=== PATIENT | female | born 1965 | race Caucasian/White ===

== ENCOUNTER → 2017-01-01 | Outpatient (CLI) | payer BC ==
[~2017-01-01] MED LIST: BCP PO; BIOT50004 PO; CALCCHW8 PO; CELE-19 PO; FOLI800T PO; MULT1TAB10 PO; NEUR300C PO; OXYC15TA76 PO; OXYC1SOL PO
--- NOTE | 2017-01-01 14:49 | REPMRS ---
Patient History The patient states she had a clinical breast exam in 01/04 No known family history of cancer. Taking hormonal contraceptives for 3 years 6 months. Digital Woman Screen Mammo: January 01, 2017 - Exam #: [id number] Bilateral CC and MLO view(s) were taken. Technologist: Steffanie Allen, Technologist Prior study comparison: October 17, 2015, digital woman screen mammo performed at [facility]. August 17, 2014, digital woman screen mammo performed at [facility]. August 11, 2013, digital woman screen mammo performed at [facility]. FINDINGS: There are scattered fibroglandular densities. There has been no change in the appearance of the mammogram from the prior studies. There is a mild amount of scattered fibroglandular density which is fairly symmetric. There is no interval development of dominant mass, architectural distortion, or clustered microcalcification suggestive of malignancy. ASSESSMENT: BI-RADS/ACR category 1 mammogram. Negative. Recommendation Routine screening mammogram in 1 year (for women over age 40). This mammogram was interpreted with the aid of an FDA-approved computer-aided dectection system. Electronically Signed By: Tim Jacobo MD 01/01/17 1057
== END ==
LOC: M WHC 14:09
PROVIDERS: ATTEND Nurse Practitioner Family
DX: Z12.31 Encounter for screening mammogram for malignant neoplasm of breast (principal); Z92.0 Personal history of contraception

== ENCOUNTER → 2017-06-05 | Outpatient (REF) | payer BC ==
[~2017-06-05] MED LIST changes: -CELE-19 PO; +CELE1CAP4 PO; -OXYC1SOL PO; +OXYC1SOL3 PO
[2017-06-05 22:07] LABS: CALCIUM OXALATE CRYSTALS SMALL
== END ==
LOC: M LAB REF 18:00
PROVIDERS: ATTEND Physician Assistant Medical
DX: N39.0 Urinary tract infection, site not specified (principal)

== ENCOUNTER → 2018-03-18 | Outpatient (CLI) | payer BC | LOC: M WHC 08:29 | DX: Z12.31 Encounter for screening mammogram for malignant neoplasm of breast (principal); Z78.0 Asymptomatic menopausal state; Z92.0 Personal history of contraception ==

== ENCOUNTER → 2018-03-18 | Outpatient (REF) | payer BC ==
[2018-03-20 14:16] LABS: HPV HYBRID CAPTURE II Positive (Negative)
== END ==
LOC: M SFHCWAGY 09:06
DX: Z12.4 Encounter for screening for malignant neoplasm of cervix (principal)
CPT/HCPCS: G0123

== ENCOUNTER → 2019-03-19 | Outpatient (REF) | payer BC ==
[2019-03-23 00:06] LABS: HPV HYBRID CAPTURE II Positive (Negative)
== END ==
LOC: M SFHCWAGY 08:37
PROVIDERS: ATTEND Nurse Practitioner Family
DX: Z12.4 Encounter for screening for malignant neoplasm of cervix (principal)
CPT/HCPCS: 87624; G0123

== ENCOUNTER → 2019-03-19 | Outpatient (CLI) | payer BC ==
--- NOTE | 2019-03-19 09:59 | REPMRS ---
Patient History The patient states she had a clinical breast exam in 02/2019. Patient is postmenopausal. No known family history of cancer. Took hormonal contraceptives for 4 years 7 months. Taking unspecified hormones for 11 months beginning at age 52. 3D TOMOSYNTHESIS WAS PERFORMED. Digital Woman Screen Mammo: March 19, 2019 - Exam #: [id number] Bilateral CC and MLO view(s) were taken. Technologist: Phuong Bedoya, Technologist Prior study comparison: March 18, 2018, digital woman screen mammo performed at [facility]. January 01, 2017, digital woman screen mammo performed at [email or web address]. FINDINGS: The breast tissue is heterogeneously dense. This may lower the sensitivity of mammography. There has been no change in the appearance of the mammogram from the prior studies. There is a moderate amount of residual fibroglandular tissue which is fairly symmetric. There is no interval development of dominant mass, areas of architectural distortion, or clustered microcalcification typical of malignancy. Assessment: BI-RADS/ACR category 1 mammogram. Negative Mammogram. Recommendation Routine screening mammogram in 1 year (for women over age 40). This mammogram was interpreted with the aid of an FDA-approved computer-aided dectection system. Electronically Signed By: Mauro Joseph MD 03/19/19 0958
== END ==
LOC: M WHC 08:07
PROVIDERS: ATTEND Nurse Practitioner Family
DX: Z12.31 Encounter for screening mammogram for malignant neoplasm of breast (principal)

== ENCOUNTER → 2020-05-11 | Outpatient (CLI) | payer BC ==
[~2020-05-11] MED LIST changes: +OXYC-1 PO; -OXYC15TA76 PO
--- NOTE | 2020-05-11 15:08 | REPMRS ---
Patient History The patient states she had a clinical breast exam in April 2020. Patient is postmenopausal. No known family history of cancer. Took hormonal contraceptives for 4 years 7 months. Taking unspecified hormones for 1 year 11 months beginning at age 52. Digital Woman Screen Mammo: May 11, 2020 - Exam #: [id number] Bilateral CC and MLO view(s) were taken. Technologist: Smitha Lindsay, Technologist Prior study comparison: March 19, 2019, bilateral digital woman screen mammo performed at [facility]. March 18, 2018, digital woman screen mammo performed at [facility]. January 01, 2017, digital woman screen mammo performed at [facility]. FINDINGS: There are scattered fibroglandular densities. The Volpara volumetric breast density category is:B. There has been no change in the appearance of the mammogram from the prior studies. There is a mild amount of scattered fibroglandular density which is fairly symmetric. There is no interval development of dominant mass, architectural distortion, or grouped microcalcification suggestive of malignancy. 3-D tomosynthesis shows no additional findings. Assessment: BI-RADS/ACR category 1 mammogram. Negative Mammogram. Recommendation Routine screening mammogram of both breasts in 1 year (for women over age 40). This patient's Lifetime Breast Cancer Risk is estimated at 8.8 %. This mammogram was interpreted with the aid of an FDA-approved computer-aided dectection system. Electronically Signed By: Tim Jacobo MD 05/11/20 [id number]
== END ==
LOC: M WHC 13:19
PROVIDERS: ATTEND Nurse Practitioner Family
DX: Z12.31 Encounter for screening mammogram for malignant neoplasm of breast (principal); Z78.0 Asymptomatic menopausal state; Z92.0 Personal history of contraception

== ENCOUNTER → 2020-05-11 | Outpatient (REF) | payer BC | LOC: M SFHCWAGY 14:51 | PROVIDERS: ATTEND Nurse Practitioner Family | DX: Z12.4 Encounter for screening for malignant neoplasm of cervix (principal) | CPT/HCPCS: 87624; G0123 ==

== ENCOUNTER → 2020-09-05 | Outpatient (REF) | payer BC | LOC: M SFHCWAGY 13:27 | PROVIDERS: ATTEND Nurse Practitioner Women's Health | DX: R87.810 Cervical high risk human papillomavirus (HPV) DNA test positive (principal) ==

== ENCOUNTER → 2021-08-01 | Outpatient (REF) | payer BC ==
[~2021-08-01] MED LIST changes: +FOLI0.8T3 PO; -FOLI800T PO
== END ==
LOC: M SFHCWAGY 13:31
PROVIDERS: ATTEND Nurse Practitioner Women's Health
DX: Z01.419 Encounter for gynecological examination (general) (routine) without abnormal findings (principal); Z12.4 Encounter for screening for malignant neoplasm of cervix
CPT/HCPCS: 87624; G0123

== ENCOUNTER → 2021-08-01 | Outpatient (CLI) | payer BC ==
--- NOTE | 2021-08-01 08:36 | REPMRS ---
Patient History The patient states she had a clinical breast exam today. 08-01-2021 Patient is postmenopausal. No known family history of cancer. Took hormonal contraceptives for 5 years 7 months. Taking unspecified hormones for 1 year 11 months beginning at age 52. Tomosynthesis is performed. Volpara breast density is b. [facility] lifetime risk of breast cancer 8.4%. Patient states no breast complaints today. Patient has signed MRS History Sheet. Digital Woman Screen Mammo: August 01, 2021 - Exam #: [id number] Bilateral CC and MLO view(s) were taken. Technologist: Caprice Redding Case Worker Prior study comparison: May 11, 2020, bilateral digital woman screen mammo performed at [facility]. March 19, 2019, bilateral digital woman screen mammo performed at [facility]. FINDINGS: There are scattered fibroglandular densities. There has been no change in the appearance of the mammogram from the prior studies. There is a mild amount of residual fibroglandular tissue which is fairly symmetric. There is no interval development of dominant mass, architectural distortion, or clustered microcalcification suggestive of malignancy. Assessment: BI-RADS/ACR category 1 mammogram. Negative Mammogram. Recommendation Routine screening mammogram in 1 year (for women over age 40). This mammogram was interpreted with the aid of an FDA-approved computer-aided dectection system. Electronically Signed By: Mauro Joseph MD 08/01/21 0835
== END ==
LOC: M WHC 07:18
PROVIDERS: ATTEND Nurse Practitioner Women's Health
DX: Z12.31 Encounter for screening mammogram for malignant neoplasm of breast (principal)

== ENCOUNTER → 2024-12-15 | Outpatient (CLI) | payer BC ==
[~2024-12-15] MED LIST changes: -BIOT50004 PO; +BIOT5CAP8 PO
== END ==
LOC: M SOG 10:03
PROVIDERS: ATTEND Physician Assistant
DX: M79.644 Pain in right finger(s) (principal)